=== PATIENT | female | born 1995 | race Caucasian/White ===

== ENCOUNTER 2019-10-11 03:37 | Inpatient (IN) | payer OTHER ==
[2019-10-11] MEDS ORDERED: TERBUTALINE 1 MG/ML VIAL SQ PRN (04:45)
[2019-10-11] MEDS ORDERED: LIDOCAINE 0.5% (PF) 5 MG/ML (50 ML SDV) SQ PRN (04:45)
[2019-10-11] MEDS ORDERED: METHYLERGONOVINE 0.2 MG/ML 1 ML AMP IM PRN (04:45)
[2019-10-11] MEDS ORDERED: OXYTOCIN 10 UNIT/ML 1 ML VIAL IM PRN (04:45)
[2019-10-11] MEDS ORDERED: CARBOPROST TROMETHAMINE 250 MCG/ML 1 ML AMP IM PRN (04:45)
[2019-10-11 05:17] LABS: Basophils % (A) 0 %; Eosinophils # (A) 0.1 k/uL (0-0.7); Eosinophils % (A) 1 %; HCT 39.8 % (34.0-46.0); HGB 13.4 gm/dL (11.4-16.0); Lymphocytes % (A) 22 %; MCH 30.1 pg (25.0-35.0); MCHC 33.8 g/dL (31.0-37.0); MCV 89.2 fL (80.0-100.0); Mean Platelet Volume 9.4; Monocytes # (A) 0.5 k/uL (0-1.0); Monocytes % (A) 6 %; Neutrophils # (A) 6.4 k/uL (1.3-7.7); Neutrophils % (A) 70 %; Platelet Count 192 k/uL (150-450); RBC 4.47 m/uL (3.80-5.40); RDW 12.9 % (11.5-15.5); WBC 9.1 k/uL (3.8-10.6)
[2019-10-11] MEDS: LACTATED RINGERS 1,000 ML IV SCH ×4 (07:14→13:47)
--- NOTE | 2019-10-11 09:03 | P.HPOB ---
History of Present Illness H&P Date: 10/11/19 Chief Complaint: Spontaneous rupture of membranes This is a 24-year-old female 1 para 0 with an estimated date of confinement of 10/14/2019, estimated gestational age of 39-4/7 weeks, who presented to labor and delivery with complaints of spontaneous rupture of membr anes with clear fluid noted at 2 AM. She is feeling irregular but stronger contractions. course has been with Dr. Gibson and has been uncomplicated per patient. labs: GC/clear/Trichomonas-negative Hepatitis B surface antigen-negative RPR-nonreactive Rubella-immune Blood type-A+ Antibody screen-negative HIV-nonreactive Hemoglobin-12.8 Random glucose-78 Obstetrical ultrasound-normal anatomy One hour Glucola-100 Group B streptococcus-negative Obstetrical history: This is her first Review of Systems Constitutional: Denies chills, Denies fever Eyes: denies blurred vision, denies pain Ears, nose, mouth and throat: Denies headache, Denies sore throat Cardiovascular: Denies chest pain, Denies shortness of breath Respiratory: Denies cough Gastrointestinal: Reports abdominal pain (Irregular contractions) Genitourinary: Reports pelvic pain, Reports Musculoskeletal: Reports low back pain Integumentary: Denies pruritus, Denies rash Neurological: Denies numbness, Denies weakness Psychiatric: Denies anxiety, Denies depression Past Medical History Past Medical History: No Reported History History of Any Multi-Drug Resistant Organisms: MRSA Date of last positivie culture/infection: 2011 MDRO Source:: LT CHEEK Past Surgical History: Adenoidectomy Additional Past Surgical History / Comment(s): SCAR REMOVED RT ARM, wisdom teeth Past Anesthesia/Blood Transfusion Reactions: No Reported Reaction Past Psychological History: No Psychological Hx Reported Smoking Status: Never smoker Past Alcohol Use History: Occasional Past Drug Use History: None Reported - Past Family History Mother Family Medical History: Cancer Medications and Allergies Home Medications Medication Instructions Recorded Confirmed Type 78/Iron/Folate 1/Dha 1 tab PO ONCE 10/11/19 10/11/19 History [Prenate Dha Softgel] Allergies Allergy/AdvReac Type Severity Reaction Status Date / Time acetaminophen [From Vicodin] AdvReac Vomiting Verified 10/11/19 05:49 hydrocodone [From Vicodin] AdvReac Vomiting Verified 10/11/19 05:49 Exam Osteopathic Statement: *. No significant issues noted on an osteopathic st ructural exam other than those noted in the History and Physical/Consult. Vital Signs Temp Pulse Resp BP Pulse Ox 10/11/19 03:47 97.9 F 73 18 137/79 100 Intake and Output 10/10/19 10/11/19 10/11/19 22:59 06:59 14:59 Other: # Voids 2 Weight 73.482 kg HEENT: Within normal limits Heart: Regular rate and rhythm Lungs: Clear to auscultation bilaterally Abdomen: Cervix: Currently is 5 cm/70%/0 station. Amnisure was positive with clear fluid noted on admission. heart tones: Category 1 Contractions: Every 2-4 minutes Extremities: Negative Homans Results Result Diagrams: 10/11/19 04:40 Assessment and Plan (1) 39 weeks gestation of Current Visit: Yes Status: Acute Code(s): Z3A.39 - 39 WEEKS GESTATION OF SNOMED Code(s): 81140034 Plan: Admission for early active labor. Expectant management.
[2019-10-11] MEDS ORDERED: BUTORPHANOL 1 MG/ML 1 ML VIAL IV PRN (09:42)
[2019-10-11] MEDS ORDERED: fentaNYL (PF) 50 MCG/ML 5 ML AMP ONE (12:49)
[2019-10-11] MEDS ORDERED: ROPIVACAINE 5MG/ML 20ML VIAL ONE (12:49)
[2019-10-11] MEDS ORDERED: SODIUM CHLORIDE 0.9% 100 ML BAG ONE (12:49)
[2019-10-11] MEDS ORDERED: WITCH HAZEL 1 EACH MED..PAD TOPICAL PRN (16:43)
[2019-10-11] MEDS ORDERED: SIMETHICONE 80 MG CHEWABLE PO PRN (16:43)
[2019-10-11] MEDS ORDERED: diphenhydrAMINE 25 MG CAP PO PRN (16:43)
[2019-10-11] MEDS ORDERED: diphenhydrAMINE 50 MG CAP PO PRN (16:43)
[2019-10-11] MEDS ORDERED: BENZOCAINE/MENTHOL SPRAY 1 GM/SPRAY AEROSOL TOPICAL PRN (16:43)
[2019-10-11] MEDS ORDERED: LANOLIN CREAM 5 GM TUBE TOPICAL PRN (16:43)
[2019-10-11] MEDS ORDERED: OXYTOCIN 20 UNITS/1000 ML NS 1,000 ML IV SCH (16:43)
[2019-10-11] MEDS ORDERED: ACETAMINOPHEN TAB 325 MG TAB PO PRN (16:43)
[2019-10-11] MEDS ORDERED: diphenhydrAMINE 50 MG/ML 1 ML VIAL IVP PRN ×2 (16:43)
[2019-10-11] MEDS ORDERED: HYDROCORTISONE 2.5% RECTAL CREAM 30 GM TUBE RECTAL PRN (16:43)
[2019-10-11] MEDS ORDERED: ZOLPIDEM 5 MG TAB PO PRN (16:43)
--- NOTE | 2019-10-11 16:57 | P.PROBDLV ---
Vaginal Delivery Note - . Vaginal Delivery Note: The patient progressed to complete dilation after spontaneous rupture of membranes and spontaneous labor. She did receive epidural anesthesia when she reached approximate 7-1/2 cm. Once reaching complete, she began pushing. Infant's head came to a crown. With one further push, the infant's head delivered across the perineum followed by the anterior shoulder. Nose and mouth were bulb suctioned at the perineum. With one further push the remainder the infant easily delivered reducing a cord that was around 1 shoulder with delivery. was placed on mother's abdomen. Cord was clamped and cut and infant was taken to warmer for evaluation. A viable male infant is noted with scores of 8 at 1 minute and 9 at 5 minutes and infant weight is 8 lbs. 3 oz. Placenta delivered shortly thereafter, intact, with a three-vessel cord. Uterus contracted well after oxytocin was given and uterine massage was carried out. Inspection of the perineum revealed a second-degree perineal laceration. This area was anesthetized with 1% lidocaine and then sutured with 3-0 and 2-0 Vicryl suture in the usual multilayer fashion. Estimated blood loss is approximately 150 mL's. Both mother and infant are in stable condition.
[2019-10-11] MEDS: SENNOSIDES-DOCUSATE SODIUM 1 EACH TAB PO SCH (21:18)
[2019-10-12] MEDS: IBUPROFEN 600 MG TAB PO PRN ×3 (02:59→21:11)
--- NOTE | 2019-10-12 07:26 | P.PNOBGVD ---
Subjective - Subjective Principal diagnosis: Status post vaginal delivery day #1 Interval history: Patient is doing well. She is breast-feeding. Lochia is decreasing. Her pain is fairly well controlled with ibuprofen. Patient reports: Reports appetite normal, Reports voiding normally, Reports pain well controlled, Reports ambulating normally [place]: doing well, nursing well Objective - Latest Vital Signs Latest vital signs: Vital Signs Temp Pulse Resp BP 10/12/19 04:00 97.9 F 77 14 105/65 10/12/19 00:00 98.1 F 93 14 123/73 10/11/19 20:00 98.4 F 85 14 132/66 10/11/19 18:30 99.1 F 95 18 130/63 10/11/19 18:00 98.3 F 93 18 128/64 10/11/19 17:45 98.9 F 91 18 110/58 10/11/19 17:30 92 116/58 10/11/19 17:15 99.0 F 85 18 118/65 10/11/19 17:00 99.0 F 107 H 18 123/60 Intake and Output 10/11/19 10/12/19 10/12/19 22:59 06:59 14:59 Other: # Voids 1 - Exam Extremities: Present: normal. Absent: tenderness Abdomen: Present: normal appearance, soft. Absent: distention, tenderness Uterus: Present: normal, firm. Absent: tenderness Assessment and Plan Assessment: Status post vaginal delivery day #1 (1) 39 weeks gestation of Current Visit: Yes Status: Acute Code(s): Z3A.39 - 39 WEEKS GESTATION OF SNOMED Code(s): 42479282 Plan: Will continue with care today. Anticipate discharge home tomorrow.
[2019-10-12 08:14] LABS: Basophils % (A) 0 %; Eosinophils # (A) 0.1 k/uL (0-0.7); Eosinophils % (A) 0 %; HCT 38.6 % (34.0-46.0); HGB 12.9 gm/dL (11.4-16.0); Lymphocytes # (A) 1.8 k/uL (1.0-4.8); Lymphocytes % (A) 10 %; MCH 30.3 pg (25.0-35.0); MCHC 33.5 g/dL (31.0-37.0); MCV 90.2 fL (80.0-100.0); Mean Platelet Volume 9.6; Monocytes # (A) 0.7 k/uL (0-1.0); Monocytes % (A) 4 %; Neutrophils # (A) 14.3 k/uL (1.3-7.7); Neutrophils % (A) 84 %; Platelet Count 169 k/uL (150-450); RBC 4.28 m/uL (3.80-5.40)
[2019-10-12] MEDS: SENNOSIDES-DOCUSATE SODIUM 1 EACH TAB PO SCH ×2 (08:19→21:12)
--- NOTE | 2019-10-13 08:32 | P.DS ---
Providers Date of admission: 10/11/19 03:51 Expected date of discharge: 10/13/19 Attending physician: Tre Gibson Primary care physician: Stated None - Discharge Diagnosis(es) (1) 39 weeks gestation of Current Visit: Yes Status: Acute Hospital Course: This is a 24 [place] female 1 para 0 at 39-4/7 weeks who presented with spontaneous rupture of membranes. She delivered a viable male on 10/11/2019 with scores of 8 at 1 minute and 9 at 5 minutes and infant weight of 8 lbs. 3 oz. Lochia is decreasing. Pain is fairly well controlled with ibuprofen. She is working on breast-feeding. Vital signs are stable. Abdomen is soft with fundus firm and nontender. Extremities show negative Homans. Impression is status post vaginal delivery day #2. Plan is to discharge home today. Routine instructions are given. She will be given a prescription for ibuprofen. She has a breast pump at home. She is advised to follow up with Dr. Gibson in the office in 6 weeks. She is advised to call the office if she has any further questions or concerns prior to her appointment time. Procedures: Spontaneous vaginal delivery of a viable male infant on 10/11/2019 Patient Condition at Discharge: Stable Plan - Discharge Summary New Discharge Prescriptions: New Ibuprofen [Motrin] 600 mg PO Q6HR PRN #60 tab PRN Reason: Mild Pain Or Fever >= 100.5 Continue 78/Iron/Folate 1/Dha [Prenate Dha Softgel] 1 tab PO ONCE Discharge Medication List 78/Iron/Folate 1/Dha [Prenate Dha Softgel] 1 tab PO ONCE 10/11/19 [History] Ibuprofen [Motrin] 600 mg PO Q6HR PRN #60 tab 10/13/19 [Rx] Follow up Appointment(s)/Referral(s): Tre Gibson MD [STAFF PHYSICIAN] - 6 Weeks Activity/Diet/Wound Care/Special Instructions: Instructions 1. Do not begin any exercise program for 3 weeks. 2. Do not resume sexual relations for 3 weeks or longer if uncomfortable. 3. You may take tub baths or showers at any time. 4. You may use tampons if desired after 3 weeks. 5. Keep the area of episiotomy (stitches) clean and dry. 6. If you are not nursing, wear a good fitting, supportive bra during the day and limit fluid intake for at least 1 week to prevent breast engorgement. 7. Call the office, [phone], within the next week to make appointment for your 6 week checkup if it has not already been made. 8. Report any of the following occurrences to the doctor promptly: a. Heavy, excessive bleeding b. Chills, fever c. Burning or frequency of urination d. Pain or redness and breasts if nursing e. Increasing pain or swelling in episiotomy (stitches). In addition to the above instructions, the following additional should be followed: 1. No heavy lifting or straining (exercising) until after 6 week checkup. 2. Keep abdominal incision clean and dry: You may wear a dressing if more comfortable. 3. Make office appointment for 10 days after going home or as instructed by her doctor. Discharge Disposition: HOME SELF-CARE
[2019-10-13 08:57] VITALS: BP 109/62; PULSE 72; RESP 16; TEMP 98.1
[2019-10-13] MEDS: SENNOSIDES-DOCUSATE SODIUM 1 EACH TAB PO SCH (09:01)
[2019-10-13] MEDS: IBUPROFEN 600 MG TAB PO PRN (13:19)
== END 2019-10-13 13:40 | disposition home or self-care (01) | DRG 807 ==
LOC: FBPOP 03:37 → 4FBP 03:51
PROVIDERS: ADMIT Obstetrics & Gynecology; ATTEND Obstetrics & Gynecology
PROC: 00HU33Z Insertion of Infusion Device into Spinal Canal, Percutaneous Approach (ICD-10-PCS; principal; 2019-10-11)
PROC: 0KQM0ZZ Repair Perineum Muscle, Open Approach (ICD-10-PCS; principal; 2019-10-11)
PROC: 10E0XZZ Delivery of Products of Conception, External Approach (ICD-10-PCS; principal; 2019-10-11)
PROC: 3E0R3BZ Introduction of Anesthetic Agent into Spinal Canal, Percutaneous Approach (ICD-10-PCS; principal; 2019-10-11)
DX: O70.1 Second degree perineal laceration during delivery (principal); Z37.0 Single live birth; Z3A.39 39 weeks gestation of pregnancy; Z79.899 Other long term (current) drug therapy; Z86.14 Personal history of Methicillin resistant Staphylococcus aureus infection; Z88.5 Allergy status to narcotic agent; Z80.9 Family history of malignant neoplasm, unspecified
CPT/HCPCS: 59025; 84112; 85025; 86850; 86900; 86901; 99213